=== PATIENT | female | born 1950 | race Caucasian/White ===

== ENCOUNTER 2024-03-27 22:52 | Inpatient (IN) | payer OTHER ==
[2024-03-27] MEDS ORDERED: ACETAMINOPHEN 500 MG TAB ONE (23:22)
[2024-03-27] MEDS ORDERED: NA CHLORIDE 0.9% 2,000 ML ONE (23:22)
[2024-03-28 00:11] LABS: Absolute Basophils 0.1 K/uL (0-0.5); Absolute Lymphocytes (CBC) 0.7 K/uL (0.7-4.9); Absolute Monocytes 2.1 K/uL (0.1-1.3); Absolute Neutrophil 23.7 K/uL (1.8-8.0); Basophils % 0.2 % (0-1.3); Eosinophils % 0.1 % (0-4.4); Hematocrit 37.2 % (36.0-45.0); Hemoglobin 12.4 g/dL (12.0-15.0); Lymphocytes % 2.5 % (15.3-44.8); MCH 28.2 pg (27.0-35.0); MCHC 33.3 g/dL (32.0-36.0); MCV 84.5 fL (80-100); MPV 7.9 fL (7.6-11.3); Monocytes % 7.8 % (3.3-12.3); Neutrophils % 89.4 % (41.7-73.7); Platelets 370 thou/uL (152-406); Red Cell Distribution Width 16.9 % (12.1-15.2)
[2024-03-28 00:14] LABS: PT Prothrombin Time 15.3 SECONDS (9.4-12.5); PTT, Activated Partial Thromb 27.5 SECONDS (24.3-36.9); Protime INR 1.38
[2024-03-28 00:18] LABS: SARS-CoV-2 Antigen CONTROL BLUE LINE VIS/BG OK; SARS-CoV-2 Antigen Rapid Res Negative (Negative)
[2024-03-28 00:24] LABS: Albumin 2.5 g/dL (3.4-5.0); Albumin/Globulin Ratio 0.8 (1.1-1.8); Anion Gap 12.9 mEq/L (5.0-15.0); Bilirubin Total 0.7 mg/dL (0.2-1.0); Globulin 3.3 g/dL (2.3-3.5); Potassium 2.9 mEq/L (3.5-5.1); Protein, Total 5.8 g/dL (6.4-8.2)
[2024-03-28] MEDS ORDERED: CEFTRIAXONE 1000 MG/VIAL ONE (00:44)
[2024-03-28 00:45] LABS: Band Neutrophils 30 % (0-1); Differential Total Cells Count 100; Lymphocytes 3 % (15-42); Monocytes 5 % (0-10); Reactive Lymphocytes 4 %; Segmented Neutrophils 58 % (40-80)
[2024-03-28] MEDS ORDERED: POTASSIUM CL SA 10 MEQ TAB PO ONE (00:45)
[2024-03-28 00:46] LABS: Blood Morphology Comment NOT SEEN (NOT SEEN); Platelet Estimate ADEQ
[2024-03-28 01:07] LABS: Specific Gravity 1.026 (1.005-1.030); Sqamous Epithelial None Seen /HPF (None Seen); Urine Bacteria >50 /HPF (<20); Urine Bilirubin NEGATIVE (Negative); Urine Blood Negative (Negative); Urine Clarity Extremely Turbid (Clear); Urine Color Yellow (Yellow); Urine Culture Reflex Order NOT NEEDED; Urine Glucose NEGATIVE (Negative); Urine Ketones NEGATIVE (Negative); Urine Microscopic Reflex YN ORDER UMIC; Urine Mucus 3+ /HPF (None Seen); Urine Nitrite 2+ (Negative); Urine Protein 1+ (Negative); Urine RBC <5 /HPF (None Seen); Urine Urobilinogen Normal (Normal)
--- NOTE | 2024-03-28 01:41 | P.HP ---
Certification for Inpatient Patient admitted to: Inpatient Practitioner: I am a practitioner with admitting privileges, knowledge of patient current condition, hospital course, and medical plan of care. Services: Services provided to patient in accordance with Admission requirements found in Title 42 Section 412.3 of the Code of Federal Regulations Patient History Date of Service: 03/28/24 Reason for admission: Colitis History of Present Illness: 73 yrs old Female presents to ER via EMS with complaints of Fever. Presents with diarrhea, dehydration. She reports started 4 days ago. ER evaluation fe pj of 102, sinus tachycardia, [id number] at bedside reports patient was found on floor unable to get out of floor for an 1 hour. She reports recently treated for C. difficile, finished 2 weeks of antibiotics. She reports a recent stay in rehab after a fall with back fracture difficulty with ambulation.. Family reports she ambulates with a walker at baseline, today when she fell she denied hitting her head, no reported extremity pain times all 4 extremity, no reported hip pain, back pain. No reported chest pain, shortness of breath, nausea vomiting. Plan to admit for SIRS, colitis, dehydration, hypokalemia, fall. IV antibiotics, - Past Medical/Surgical History -: Congestive heart failure -: Anxiety -: Hypertension -: Fall, back fracture -: C. difficile Psychosocial/ Personal History: Ambulates with a walker, lives in an apartment on her family's property, family checks on her daily - Social History Smoking Status: Never smoker Alcohol use: No Caffeine use: Yes Place of Residence: Home Review of Systems As per [facility] Physical Examination - Physical Exam General: Alert, In no apparent distress, Oriented x3 HEENT: Atraumatic, Normocephalic Neck: Supple, 2+ carotid pulse no bruit Respiratory: Clear to auscultation bilaterally, Normal air movement Cardiovascular: No edema, Normal pulses, Regular rate/rhythm, Other (Tachycardia) Capillary refill: <2 Seconds Gastrointestinal: Normal bowel sounds, Tenderness (Left upper quadrant, left lower quadrant tenderness) Musculoskeletal: No clubbing, No swelling - Studies Laboratory Data (last 24 hrs) 03/27/24 03/27/24 03/27/24 23:20 23:20 23:20 WBC 26.50 H Hgb 12.4 Hct 37.2 Plt Count 370 PT 15.3 H INR 1.38 APTT 27.5 Sodium 136 Potassium 2.9 L BUN 18 Creatinine 0.67 Glucose 143 H Total Bilirubin 0.7 AST 16 ALT 19 Alkaline Phosphatase 113 Microbiology Data (last 24 hrs): 03/27/24 23:20 Nasopharnyx Influenza Type A Antigen Screen - Final 03/27/24 23:20 Nasopharnyx Influenza Type B Antigen Screen - Final Assessment and Plan - Problems (Diagnosis) (1) Pancolitis Current Visit: Yes Status: Acute (2) SIRS (systemic inflammatory response syndrome) Current Visit: Yes Status: Acute (3) Dehydration Current Visit: Yes Status: Acute (4) Diarrhea Current Visit: Yes Status: Acute (5) Hypokalemia Current Visit: Yes Status: Acute (6) Fall Current Visit: Yes Status: Acute - Plan Admit to [facility] GI consult IV fluids, IV antibiotics, as needed antiemetics, and as needed analgesia Stool cultures, blood cultures, urine culture PT eval for fall Trend electrolytes replace as needed Discharge Plan: Home - Advance Directives Does patient have a Living Will: Yes Does patient have a Durable POA for Healthcare: Yes - Code Status/Comfort Care Code Status: Full Code Critical Care: No Time Spent Managing Pts Care (In Minutes): 55
[2024-03-28] MEDS ORDERED: METRONIDAZOLE 500mg IVPB 500 MG/100 ML BAG IV ONE (02:07)
--- NOTE | 2024-03-28 02:10 | EDPHYS ---
Physician Documentation [facility] Name: Gisele Todd Age: 73 yrs Sex: Female : 1950 Arrival Date: 03/27/2024 Time: 22:52 Bed 13 Private MD: ED Physician David Almanzar HPI: 03/27 23:44 This 73 yrs old Female presents to ER via EMS with complaints of Fever. kb 23:44 Pt is a 73 year old female who presents for weakness and 2 falls today. Denies any kb injury. EMS reports fever of 102 with tachycardia. Family reports pt has had diarrhea since . Family states pt had surgery for a broken arm approx 6 weeks ago. Went to rehab where she developed c.diff 5 weeks ago, was on antibiotics and quarantine for 3 weeks and has been home for 2 weeks. . Historical: - Allergies: 23:07 No Known Allergies; rg5 - PMHx: 23:07 Anxiety; Congestive heart failure; Hypertensive disorder; rg5 - Immunization history:: Adult Immunizations up to date. - Infectious Disease History:: CDIFF, . - Social history:: Smoking status: unknown. ROS: 23:44 Constitutional: As per HPI kb Exam: 23:27 Constitutional: This is a well developed, well nourished patient who is awake, alert, kb and in no acute distress. Head/Face: Normocephalic, atraumatic. ENT: Moist Mucous membranes Cardiovascular: Tachycardic rate Respiratory: Respirations even and unlabored. No increased work of breathing. Talking in full sentences Skin: Warm, dry with normal turgor. Normal color. MS/ Extremity: Pulses equal, no cyanosis. Neurovascular intact. Full, normal range of motion. Neuro: Awake and alert, GCS 15, oriented to person, place, time, and situation. Moves all extremities. Normal gait. 23:27 ECG was reviewed by the Attending Physician. 23:27 Abdomen/GI: Inspection: abdomen appears normal, Bowel sounds: normal, Palpation: soft, in all quadrants, mild abdominal tenderness, in the right upper quadrant and right lower quadrant, Vital Signs: 23:04 BP 120 / 66; Pulse 115; Resp 19; Temp 102.3(O); Pulse Ox 89% on R/A; Weight 83.46 kg; rg5 Height 5 ft. 7 in. ; Pain 0/10; 23:13 BP 120 / 66; Pulse 115; Resp 19; Temp 102.3; Pulse Ox 95% on 3 lpm NC; Pain 0/10; rg5 23:55 BP 114 / 66; Pulse 98; Resp 18; Temp 98.9(O); Pulse Ox 95% on 3 lpm NC; Pain 0/10; 5 03/28 01:12 BP 116 / 72; Pulse 96; Resp 17; Pulse Ox 96% on 3 lpm NC; Pain 0/10; rg5 02:31 BP 107 / 66; Pulse 97; Resp 17; Pulse Ox 96% on 2 lpm NC; Pain 0/10; rg5 03/27 23:04 Body Mass Index 28.82 (83.46 kg, 170.18 cm) [facility] 03/27 23:04 Pain Scale: Adult rg5 23:13 Pain Scale: Adult rg5 23:55 Pain Scale: Adult 5 03/28 01:12 Pain Scale: Adult rg5 02:31 Pain Scale: Adult rg5 Юлия Coma Score: 03/27 23:55 Eye Response: spontaneous(4). Motor Response: obeys commands(6). Verbal Response: rg5 oriented(5). Total: 15. MDM: 22:59 Patient medically screened. kb 23:44 Data reviewed: vital signs, nurses notes. Historians other than the Patient: EMS: [facility]. 03/28 00:41 Transition of care: After a detail discussion of the patient's case, care is kb transferred to David Almanzar MD. 02:10 Differential diagnosis: Colitis, UTI. rt 03/27 23:06 Order name: Blood Culture Adult (2) kb 03/27 23:06 Order name: CBC with Diff; Complete Time: 00:46 kb 03/27 23:06 Order name: CMP; Complete Time: 00:24 kb 03/27 23:06 Order name: Lactate w/ 2H reflex if indic.; Complete Time: 00:21 kb 03/27 23:06 Order name: Protime (+inr); Complete Time: 00:14 kb 03/27 23:06 Order name: Ptt, Activated; Complete Time: 00:14 kb 03/27 23:06 Order name: Urinalysis w/ reflexes; Complete Time: 01:40 kb 03/27 23:06 Order name: SARS-COV-2 Antigen Rapid; Complete Time: 00:19 kb 03/27 23:06 Order name: Flu; Complete Time: 00:27 kb 03/27 23:13 Order name: Stool Culture 03/27 23:13 Order name: C.difficile 03/28 00:18 Order name: Manual Differential; Complete Time: 00:46 EDMS 03/27 23:06 Order name: Chest Single View XRAY 03/27 23:06 Order name: CT Abd/Pelvis - IV Contrast Only 03/27 23:06 Order name: EKG; Complete Time: 23:06 kb 03/27 23:06 Order name: Accucheck; Complete Time: 23:19 kb 03/27 23:06 Order name: Cardiac monitoring; Complete Time: 23:19 kb 03/27 23:06 Order name: EKG - Nurse/Tech; Complete Time: 23:19 kb 03/27 23:06 Order name: IV Saline Lock - Large Bore; Complete Time: 23:19 kb 03/27 23:06 Order name: Labs collected and sent; Complete Time: 23:31 kb 03/27 23:06 Order name: O2 Per Protocol; Complete Time: 23:31 kb 03/27 23:06 Order name: O2 Sat Monitoring; Complete Time: 23:31 kb 03/27 23:06 Order name: Vital Signs; Complete Time: 23:32 kb 03/28 00:22 Order name: Straight Cath; Complete Time: 00:46 kb EC/15 23:27 Rate is 113 beats/min. Rhythm is regular. QRS [place] is Normal. IN interval is normal at kb 164 msec. QRS interval is normal at 94 msec. QT interval is normal at 485 msec. Administered Medications: 23:31 Drug: Acetaminophen PO 500 mg PO once Route: PO; rg5 03/28 00:23 Follow up: Response: No adverse reaction rg5 03/27 23:32 Drug: NS 0.9% IV (30 ml/kg) 30 ml/kg IV at bolus once; Sepsis Protocol Route: IV; Rate: rg5 bolus; Site: left antecubital; 03/28 02:52 Follow up: IV Status: Completed infusion rg5 00:46 Drug: Rocephin IV 1 grams IV at calculated rate once; Given slow IV push per pharmacy rg5 instructions Route: IV; Rate: calculated rate; Site: left antecubital; 02:51 Follow up: Response: No adverse reaction rg5 02:52 Follow up: IV Status: Completed infusion; IV Intake: 50ml rg5 00:46 Drug: Potassium Chloride PO 40 mEq PO once Route: PO; rg5 02:04 Follow up: Response: No adverse reaction rg5 02:15 Drug: metroNIDAZOLE IVPB 500 mg 100 ml IVPB at 200 ml/hr once over 30 mins Volume: 100 rg5 ml; Route: IVPB; Rate: 200 ml/hr; Infused Over: 30 mins; Site: left antecubital; 02:51 Follow up: IV Status: Completed infusion; IV Intake: 100ml rg5 Disposition: 02:10 Co-signature as Attending Physician, David Almanzar MD I reviewed the patient's care rt provided by the Advanced Practice Provider and agree with the diagnosis and treatment plan. Disposition Summary: 03/28/24 02:10 Hospitalization Ordered Notes: Hospitalization Status: Inpatient Admission rt Provider: Sukhdev Sanchez rt [facility] rt Condition: Fair rt Problem: new rt Symptoms: have improved rt Bed/Room Type: Standard rt Room Assignment: 224(03/28/24 02:16) Diagnosis - Pancolitis rt - Sepsis rt Forms: - Medication Reconciliation Form rt - SBAR form rt - Leadership Thank You Letter rt Signatures: Dispatcher [employer] Angie [facility], IVÁN-C MFT-Ckb Karolina Maria RN RN David Springer MD MD rt Deena Melo FNP MFT cm12 Johnnie Sepulveda RN RN rg5 Corrections: (The following items were deleted from the chart) 03/27 23:06 23:06 BLOOD CULTURE*+BA.LAB.BRZ ordered. EDMS EDMS 23:06 23:06 CBC+H.LAB.BRZ ordered. EDMS EDMS 23:06 23:06 COMPREHENSIVE METABOLIC PANEL+C.LAB.BRZ ordered. EDMS EDMS 23:06 23:06 LACTATE+C.LAB.BRZ ordered. EDMS EDMS 23:06 23:06 PROTIME (+INR)+COAG.LAB.BRZ ordered. EDMS EDMS 23:06 23:06 PTT, ACTIVATED+COAG.LAB.BRZ ordered. EDMS EDMS 23:06 23:06 Urinalysis+U.LAB.BRZ ordered. EDMS EDMS 23: 23:06 SARS-COV-2 Antigen Rapid+I.LAB.BRZ ordered. EDMS EDMS 23: 23:06 Influenza Screen (A \T\ B)+BA.LAB.BRZ ordered. EDMS EDMS 23: 23:06 Chest Single View+RAD.RAD.BRZ ordered. EDMS EDMS 23: 23:13 Stool Culture+BA.LAB.BRZ ordered. EDMS EDMS 23: 23:13 C.difficile GDH Ag \T\ Toxin AB+LAB.BRZ ordered. EDMS EDMS 23: 23:27 Constitutional: This is a well developed, well nourished patient who is awake, kb alert, and in no acute distress. Head/Face: Normocephalic, atraumatic. ENT: Moist Mucous membranes Cardiovascular: Regular rate Respiratory: Respirations even and unlabored. No increased work of breathing. Talking in full sentences Skin: Warm, dry with normal turgor. Normal color. MS/ Extremity: Pulses equal, no cyanosis. Neurovascular intact. Full, normal range of motion. Neuro: Awake and alert, GCS 15, oriented to person, place, time, and situation. Moves all extremities. Normal gait. kb 03/28 02:16 02:10 rt cg
--- NOTE | 2024-03-28 02:10 | ER ---
Nurse's Notes [facility] Name: Gisele Todd Age: 73 yrs Sex: Female : 1950 Arrival Date: 03/27/2024 Time: 22:52 Bed 13 Private MD: Diagnosis: Pancolitis;Sepsis Presentation: 03/27 23:04 Chief complaint: EMS states: patient had a multiple falls \T\ complaint of weakness. rg5 Coronavirus screen: Vaccine status: Patient reports receiving the 1st dose of the Covid vaccine. Client denies travel out of the [place] in the last 14 days. Ebola Screen: Patient negative for fever greater than or equal to 101.5 degrees Fahrenheit, and additional compatible Ebola Virus Disease symptoms. Initial Sepsis Screen: Does the patient meet any 2 criteria? No. Patient's initial sepsis screen is negative. Does the patient have a suspected source of infection? No. Patient's initial sepsis screen is negative. Risk Assessment: Do you want to hurt yourself or someone else? Patient reports no desire to harm self or others. Onset of symptoms was March 27, 2024. 23:04 Method Of Arrival: EMS: [facility] rg5 23:04 Acuity: WHITNEY 3 rg5 23:15 Care prior to arrival: Medication(s) given: Tylenol, 650 mg, IV initiated. 20 GA, in rg5 the left antecubital area, Glucose check: 161. Triage Assessment: 23:07 General: Appears in no apparent distress. Behavior is calm, cooperative, appropriate rg5 for age. Pain: Denies pain. EENT: No deficits noted. Neuro: Level of Consciousness is awake, alert, obeys commands, Oriented to person, place, time, situation. Cardiovascular: Denies chest pain, Capillary refill < 3 seconds Patient's skin is warm and dry. Rhythm is sinus tachycardia. Respiratory: Airway is patent Trachea midline Respiratory effort is even, unlabored, Respiratory pattern is regular, symmetrical. GI: Abdomen is round non-distended, Abd is soft and non tender Reports diarrhea. : No signs and/or symptoms were reported regarding the genitourinary system. Derm: Skin is intact, Skin is dry, Skin is normal, Skin temperature is warm. Musculoskeletal: Range of motion: intact in all extremities. Historical: - Allergies: 23:07 No Known Allergies; rg5 - PMHx: 23:07 Anxiety; Congestive heart failure; Hypertensive disorder; rg5 - Immunization history:: Adult Immunizations up to date. - Infectious Disease History:: CDIFF, . - Social history:: Smoking status: unknown. Screenin:16 [facility] ED Fall Risk Assessment (Adult) History of falling in the last 3 months, rg5 including since admission Yes- fall prone (multiple falls) (3 pts) Confusion or Disorientation No (0 pts) Intoxicated or Sedated No (0 pts) Impaired Gait Yes (1 pt) Mobility Assist Device Used Yes (1 pt) Altered Elimination No (0 pt) Score/Fall Risk Level 3 or more points = High Risk Oriented to surroundings, Maintained a safe environment, Hourly rounding (assess needs \T\ fall precautionary measures) done. Abuse screen: Denies threats or abuse. Nutritional screening: No deficits noted. Tuberculosis screening: No symptoms or risk factors identified. Assessment: 23:14 Reassessment: see triage assessment. rg5 23:53 Reassessment: Patient and/or family updated on plan of care and expected duration. Pain rg5 level reassessed. Patient is alert, oriented x 3, equal unlabored respirations, skin warm/dry/pink. Patient states feeling better. 03/28 00:00 Reassessment: Patient and/or family updated on plan of care and expected duration. Pain rg5 level reassessed. Patient is alert, oriented x 3, equal unlabored respirations, skin warm/dry/pink. 01:11 Reassessment: Patient and/or family updated on plan of care and expected duration. Pain rg5 level reassessed. Patient is alert, oriented x 3, equal unlabored respirations, skin warm/dry/pink. 02:31 Reassessment: Patient and/or family updated on plan of care and expected duration. Pain rg5 level reassessed. Patient is alert, oriented x 3, equal unlabored respirations, skin warm/dry/pink. Patient states feeling better. Vital Signs: 03/27 23:04 BP 120 / 66; Pulse 115; Resp 19; Temp 102.3(O); Pulse Ox 89% on R/A; Weight 83.46 kg; rg5 Height 5 ft. 7 in. ; Pain 0/10; 23:13 BP 120 / 66; Pulse 115; Resp 19; Temp 102.3; Pulse Ox 95% on 3 lpm NC; Pain 0/10; rg5 23:55 BP 114 / 66; Pulse 98; Resp 18; Temp 98.9(O); Pulse Ox 95% on 3 lpm NC; Pain 0/10; rg5 03/28 01:12 BP 116 / 72; Pulse 96; Resp 17; Pulse Ox 96% on 3 lpm NC; Pain 0/10; rg5 02:31 BP 107 / 66; Pulse 97; Resp 17; Pulse Ox 96% on 2 lpm NC; Pain 0/10; rg5 03/27 23:04 Body Mass Index 28.82 (83.46 kg, 170.18 cm) rg5 03/27 23:04 Pain Scale: Adult rg5 23:13 Pain Scale: Adult rg5 23:55 Pain Scale: Adult rg5 03/28 01:12 Pain Scale: Adult rg5 02:31 Pain Scale: Adult rg5 Юлия Coma Score: 03/27 23:55 Eye Response: spontaneous(4). Motor Response: obeys commands(6). Verbal Response: rg5 oriented(5). Total: 15. ED Course: 22:59 Patient arrived in ED. tl4 22:59 Angie Dahl FNP-C is [facility]. kb 22:59 David Almanzar MD is Attending Physician. kb 23:03 Johnnie Sepulveda, CHAKA is Primary Nurse. rg5 23:07 Triage completed. rg5 23:07 Arm band placed on right wrist. EKG completed in triage. Results shown to MD. rg5 23:16 Patient has correct armband on for positive identification. Fall risk band placed. rg5 Placed in gown. Call light in reach. Side rails up X2. Adult w/ patient. 23:16 No provider procedures requiring assistance completed. Maintain EMS IV. Dressing rg5 intact. Good blood return noted. Site clean \T\ dry. Gauge \T\ site: 20 gauge left AC. Flushed with 10 mL NS. Oxygen administration via nasal cannula \T\ 3L/min. 23:20 EKG done, by ED staff, reviewed by Angie OJEDA. oe 23:39 Chest Single View XRAY In Process Unspecified. EDMS 03/28 01:07 CT Abd/Pelvis - IV Contrast Only In Process Unspecified. EDMS 02:09 Sanchez, Sukhdev, MD is Hospitalizing Provider. rt 02:58 Provided Education on: need for admit. rg5 02:58 Patient admitted, IV remains in place. intact, No redness/swelling at site. rg5 Administered Medications: 03/27 23:31 Drug: Acetaminophen PO 500 mg PO once Route: PO; rg5 03/28 00:23 Follow up: Response: No adverse reaction rg5 03/27 23:32 Drug: NS 0.9% IV (30 ml/kg) 30 ml/kg IV at bolus once; Sepsis Protocol Route: IV; Rate: rg5 bolus; Site: left antecubital; 03/28 02:52 Follow up: IV Status: Completed infusion rg5 00:46 Drug: Rocephin IV 1 grams IV at calculated rate once; Given slow IV push per pharmacy rg5 instructions Route: IV; Rate: calculated rate; Site: left antecubital; 02:51 Follow up: Response: No adverse reaction rg5 02:52 Follow up: IV Status: Completed infusion; IV Intake: 50ml rg5 00:46 Drug: Potassium Chloride PO 40 mEq PO once Route: PO; rg5 02:04 Follow up: Response: No adverse reaction rg5 02:15 Drug: metroNIDAZOLE IVPB 500 mg 100 ml IVPB at 200 ml/hr once over 30 mins Volume: 100 rg5 ml; Route: IVPB; Rate: 200 ml/hr; Infused Over: 30 mins; Site: left antecubital; 02:51 Follow up: IV Status: Completed infusion; IV Intake: 100ml rg5 Medication: 03/27 23:16 VIS not applicable for this client. rg5 Intake: 03/28 02:51 IV: 100ml; Total: 100ml. rg5 02:52 IV: 50ml; Total: 150ml. rg5 Outcome: 02:10 Decision to Hospitalize by Provider. rt 03:20 Admitted to Med/surg accompanied by tech, via stretcher, rg5 03:20 Condition: stable 03:20 Instructed on the need for admit, Demonstrated understanding of instructions, 03:21 Patient left the ED. rg5 Signatures: Dispatcher [employer] EDNJ Angie Dahl, CULTURAL HISTORIAN-C CULTURAL HISTORIAN-Ckb Alfonzo Vasquez Ryan, MD MD rt Flavio Hernández RN RN tl4 Johnnie Sepulveda, RN RN rg5
[2024-03-28 03:43] VITALS: BMI 27.1
[2024-03-28] MEDS ORDERED: ONDANSETRON 4 MG/2 ML VIAL IV PRN (03:48)
[2024-03-28] MEDS: CIPROFLOXACIN 400mg IV 400 MG/200 ML BAG IV SCH (04:07)
[2024-03-28] MEDS: NA CHLORIDE 0.9% 1,000 ML IV SCH (04:07)
[2024-03-28 04:51] LABS: Absolute Basophils 0.1 K/uL (0-0.5); Absolute Lymphocytes (CBC) 1.1 K/uL (0.7-4.9); Absolute Monocytes 1.7 K/uL (0.1-1.3); Absolute Neutrophil 21.8 K/uL (1.8-8.0); Basophils % 0.3 % (0-1.3); Eosinophils % 0.1 % (0-4.4); Hematocrit 35.6 % (36.0-45.0); Hemoglobin 11.4 g/dL (12.0-15.0); Lymphocytes % 4.3 % (15.3-44.8); MCH 27.5 pg (27.0-35.0); MCHC 32.1 g/dL (32.0-36.0); MCV 85.7 fL (80-100); MPV 8.1 fL (7.6-11.3); Neutrophils % 88.3 % (41.7-73.7); Platelets 305 thou/uL (152-406); RBC Red Blood Cell Count 4.15 M/uL (3.86-4.86); Red Cell Distribution Width 16.7 % (12.1-15.2)
[2024-03-28 05:05] LABS: Anion Gap 12.3 mEq/L (5.0-15.0); Magnesium 1.8 mg/dL (1.6-2.4); Potassium 3.3 mEq/L (3.5-5.1)
[2024-03-28] MEDS: METRONIDAZOLE 500mg IVPB 500 MG/100 ML BAG IV SCH (05:18)
[2024-03-28] MEDS: ACETAMINOPHEN 500 MG TAB PO PRN (11:39)
--- NOTE | 2024-03-28 12:48 | EKG ---
Test Date: 2024-03-27 Test Time: 23:16:31 Workday Director: JOEL MEASUREMENT RESULTS: Intervals: Rate: 113 PA: 164 QRSD: 94 QT: 354 QTc: 485 [place]: P: 50 PA: 164 QRS: 19 T: 76 INTERPRETIVE STATEMENTS: Sinus tachycardia with premature supraventricular complexes Otherwise normal ECG No previous ECG available for comparison Electronically Signed On 03-28-24 12:46:43 CDT by Yemi Simon
--- NOTE | 2024-03-28 13:30 | P.PN ---
Date of Service: 03/28/24 CT shows abnormal mucosal thickening, minimal enhancement and pericolonic haziness throughout the large bowel corresponding to pancolitis/pseudomembranous colitis could be of consideration. Elevation of the left hemidiaphragm with compressive atelectatic changes and portions of the stomach, spleen within the left lower chest cavity. Subjective: Drowsy, reports less diarrhea so far today No other acute events overnight ROS: 10 point ROS as noted above, otherwise negative Physical exam GEN: Drowsy, falls asleep easily but answers questions appropriately, oriented, NAD HEENT: Normal conjunctiva, sclera anicteric CV: Regular rate and rhythm, no edema Pulm: Nonlabored respirations on room air ABD: Soft, nontender, nondistended MSK: No joint tenderness Integumentary: No rashes Neuro: Normal speech, normal affect Vitals reviewed Assessment Sepsis secondary to pancolitis/pseudomembranous colitis Recent C. difficile infection Hypokalemia Hypertension Gout Plan Sepsis secondary to pancolitis/pseudomembranous colitis Recent C. difficile infection -CT data power consultant on 03/[address] shows abnormal mucosal thickening, minimal enhancement and pericolonic haziness throughout the large bowel corresponding to pancolitis/pseudomembranous colitis could be of consideration. Elevation of the left hemidiaphragm with compressive atelectatic changes and portions of the stomach, spleen within the left lower chest cavity. -Significant leukocytosis noted -Patient reports in February she had surgery on her back to do T11/L1 fracture After surgery she was admitted to [facility] nursing facility for rehab While in [facility] she developed C. difficile and completed 2 weeks of oral antibiotics-likely vancomycin She finished the 2-week course of antibiotics about 3 weeks ago Reports she has been feeling well until the last 3 to 4 days when she developed diarrhea and began to feel very weak/tired -C. 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
[2024-03-28] MEDS: KCL 20 MEQ/100 mL IVPB 20 MEQ/100 ML BAG IV SCH (14:01)
[2024-03-28] MEDS: VANCOMYCIN HCL 125 MG CAPSULE PO SCH (14:13)
--- NOTE | 2024-03-28 14:50 | RAD REPORT ---
CLINICAL HISTORY: Fever. COMPARISON: None. TECHNIQUE: XR CHEST 1 VIEW 03/27/2024 11:06 PM CDT FINDINGS: Cardiac silhouette is normal in size. Lungs are clear without consolidation, atelectasis, mass or [place] ma. There is no pleural effusion. There is no pneumothorax. There are no acute osseous findings. Left diaphragm is elevated. IMPRESSION: Clear lungs. Electronically signed by: Shahriar López MD 03/28/2024 12:03 AM CDT RP Transcribed Date/Time: 03/28/2024 2:49 PM
--- NOTE | 2024-03-28 15:00 | RAD REPORT ---
EXAM DESCRIPTION: CTABDOMEN PELVIS WITH IV CONTRAST 03/28/2024 1:23 AM CDT CLINICAL HISTORY: 73 years, Female, Abdomen pain. COMPARISON: None. PROCEDURE: Contrast-enhanced images of the abdomen and pelvis were performed from the lung bases to the ischial tuberosities after the administration of IV contrast. In addition multiplanar reformats in the coronal and sagittal plane were obtained and reviewed. An individualized dose optimization technique, Automated Exposure Control, was utilized for the perfo rmed procedure. FINDINGS: Lung bases: The lung bases demonstrate elevation of the left hemidiaphragm with compressive atelectat ic changes and portions of the stomach spleen within the left lower chest cavity. Liver: The liver demonstrated presence of decreased attenuation corresponding to a study done fatty i nfiltration. Gallbladder: Surgical clips within the gallbladder fossa corresponding to previous cholecystectomy. N o significant biliary duct dilatation. Adrenal glands: The adrenal glands demonstrate to be normal. Pancreas: The pancreas demonstrate to be normal. Spleen: The spleen demonstrate to be within normal limits. Kidneys: The kidneys demonstrate normal uptake of contrast media. There is no evidence for nephrolith iasis and/or hydronephrosis. GI: Grossly the unopacified stomach and small bowel demonstrate to be within normal limits. No eviden ce for bowel dilatation and/or free air. There is abnormal mucosal thickening, minimal enhancement and pericolonic haziness throughout the lar ge bowel corresponding to pancolitis/pseudomembranous colitis could be of consideration. : The urinary bladder demonstrate to be unremarkable. Genitalia: The uterus is absent. There are no adnexal masses. Abdominal aorta: The aorta demonstrate to be within normal limits. Retroperitoneum:There is no retroperitoneal lymphadenopathy. There is no evidence for ascites and/or abnormal fluid collections. Bones: The lumbar spine demonstrated presence of posterior testicular fusion at T11/T12 and L2/L3 4 t reatment of compressed fracture with retropulsed fragment at L1. Soft tissues: The soft tissues demonstrate small injection granuloma right gluteal area. IMPRESSION: Abnormal mucosal thickening, minimal enhancement and pericolonic haziness throughout the large bowel corresponding to pancolitis/pseudomembranous colitis could be of consideration. Status post cholecystectomy and hysterectomy. Fatty infiltration of the liver. Elevation of the left hemidiaphragm with compressive atelectatic changes and portions of the stomach spleen within the left lower chest cavity. The Electronically signed by: Devon Perales MD 03/28/2024 01:39 AM CDT RP Transcribed Date/Time: 03/28/2024 3:00 PM
[2024-03-28] MEDS: NA CHLORIDE 0.9% 1,000 ML IV ONE (15:37)
[2024-03-28 17:26] LABS: CDIFF INTERNAL NEG CONTROL White Background (WHITE BKGD); STOOL CONSISTENCY Liquid/Semi-Solid
[2024-03-28 17:27] LABS: C.diff Antigen/Toxin Ag pos : Tox pos (NEG : NEG)
[2024-03-28] MEDS: FIDAXOMICIN 200 MG TABLET PO SCH (20:16)
[2024-03-29] MEDS: KCL 20 MEQ/100 mL IVPB 20 MEQ/100 ML BAG IV SCH (00:16)
[2024-03-29 04:57] LABS: Absolute Basophils 0.1 K/uL (0-0.5); Absolute Eosinophils 0.4 K/uL (0-0.5); Absolute Lymphocytes (CBC) 1.3 K/uL (0.7-4.9); Absolute Monocytes 1.4 K/uL (0.1-1.3); Basophils % 0.3 % (0-1.3); Eosinophils % 1.4 % (0-4.4); Hematocrit 34.6 % (36.0-45.0); Hemoglobin 11.4 g/dL (12.0-15.0); Lymphocytes % 4.9 % (15.3-44.8); MCH 28.2 pg (27.0-35.0); MCV 85.5 fL (80-100); MPV 7.7 fL (7.6-11.3); Monocytes % 5.2 % (3.3-12.3); Neutrophils % 88.2 % (41.7-73.7); Platelets 360 thou/uL (152-406); RBC Red Blood Cell Count 4.04 M/uL (3.86-4.86); Red Cell Distribution Width 16.9 % (12.1-15.2)
[2024-03-29 05:13] LABS: Anion Gap 8.1 mEq/L (5.0-15.0); Magnesium 1.8 mg/dL (1.6-2.4); Potassium 4.1 mEq/L (3.5-5.1)
[2024-03-29] MEDS: MAGNESIUM SULFATE 1 gm IVPB 1 GM/100 ML BAG IV ONE (05:31)
--- NOTE | 2024-03-29 07:35 | P.PN ---
Date of Service: 03/29/24 Subjective: Two Diarrhea episodes in 24 hours Increased WBC, continue fidaxamicin ROS: 10 point ROS as noted above, otherwise negative Physical exam GEN: Awake and oriented, NAD HEENT: Normal conjunctiva, sclera anicteric CV: RRR, S1 S2 present, no edema Pulm: Nonlabored respirations on room air ABD: Soft on palpation, ND/NT MSK: No joint tenderness Integumentary: No rashes Neuro: Normal speech, normal affect Vitals reviewed Assessment Sepsis secondary to pancolitis/pseudomembranous colitis Recent C. difficile infection Hypokalemia Hypertension Gout Plan Sepsis secondary to pancolitis/pseudomembranous colitis Recent C. 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 Elevation of the left hemidiaphragm with compressive atelectatic changes and portions of the stomach, spleen within the left lower chest cavity. -Significant leukocytosis noted -Patient reports in February she had surgery on her back to do T11/L1 fracture After surgery she was admitted to [facility] for rehab While in [facility] she developed C. difficile and completed 2 weeks of oral antibiotics-likely vancomycin She finished the 2-week course of antibiotics about 3 weeks ago Reports she has been feeling well until the last 3 to 4 days when she developed diarrhea and began to feel very weak/tired -C. 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 Plan of care discussed with Ms. Ley. Patient reports improvement in her diarrhea. She reports persistent abdominal pain. Stool for C. difficile is positive. Continue Dificid. Infectious disease consult. Monitor and replete electrolytes as needed. <cheko henley - Last Filed: 03/30/24 18:35>
--- NOTE | 2024-03-29 15:20 | CON ---
History Of Present Illness: This is a 73-year-old female brought into the emergency room with fevers and diarrhea. She was seen in the emergency room 4 days ago for a fever of 102, tachycardia. She w as recently treated for C diff, finished 2 weeks of antibiotic. As per patient, she developed some c onfusion. Also does not recall much at this point. Past Medical History: Congestive heart failure, anxiety, hypertension, fall and back fracture, C dif f colitis. Social History: Nonsmoker. Nondrinker. Family History: Noncontributory. Medications: Dificid. See MARs for other medications. Allergies: NO KNOWN DRUG ALLERGIES. Review of Systems: A 10-point review was performed. Physical Examination: General: This is a 73-year-old female, lying in bed, not in any acute cardiopulmonary distress. Sin ce yesterday, patient had 5 bowel movements, all liquid. Vital Signs: Temperature 97, pulse 93, respirations 16, blood pressure 106/62. HEENT: Unremarkable. Neck: Supple. Lungs: Clear to auscultation. Basal crackles. Heart: S1, S2. Regular. Abdomen: Sounds hyperactive, nontender. Extremities: No edema. Laboratory Data: Shows WBC 27,000, hemoglobin 11.4, platelets 360. Chemistry shows BUN of 10, creat inine 0.4, albumin level of 2.5. Urinalysis shows wbc 5 to 10. Micro data: Negative for influenza A and B antigen. Blood cultures are negative for 24 hours. C diff toxin, antigen positive, toxin po sitive. COVID test negative. Abdominal CT and pelvis CT shows abnormal mucosal thickening, minimall y enhanced and pericolonic haziness throughout the large bowel corresponding to pancolitis, pseudomem branous colitis. Assessment And Plan: Clostridium difficile colitis with pancolitis. Continue Dificid and hydration. Dietary consult for monitoring the dietary habits and nutritional support. Leukocytosis secondary to Clostridium difficile colitis. Consider transferring patient for possible fecal transplant and pr olonged treatment with the Dificid. Consider adding Questran and probiotics. So through our treatme nt plan, we will follow the patient closely. Thank you, Dr. Shah, for consult. NF/MODL Voice ID: [id number] Report ID: [id number]
[2024-03-30 06:15] LABS: Absolute Basophils 0.1 K/uL (0-0.5); Absolute Eosinophils 0.6 K/uL (0-0.5); Absolute Lymphocytes (CBC) 1.1 K/uL (0.7-4.9); Absolute Monocytes 0.9 K/uL (0.1-1.3); Absolute Neutrophil 15.3 K/uL (1.8-8.0); Basophils % 0.4 % (0-1.3); Eosinophils % 3.2 % (0-4.4); Hematocrit 37.4 % (36.0-45.0); Lymphocytes % 6.2 % (15.3-44.8); MCH 27.7 pg (27.0-35.0); MCV 86.5 fL (80-100); MPV 7.7 fL (7.6-11.3); Monocytes % 4.8 % (3.3-12.3); Neutrophils % 85.4 % (41.7-73.7); Platelets 380 thou/uL (152-406); RBC Red Blood Cell Count 4.33 M/uL (3.86-4.86); Red Cell Distribution Width 17.1 % (12.1-15.2)
[2024-03-30 06:16] LABS: Anion Gap 8.6 mEq/L (5.0-15.0); Magnesium 1.9 mg/dL (1.6-2.4); Potassium 3.6 mEq/L (3.5-5.1)
[2024-03-30] MEDS: POTASSIUM CL SA 10 MEQ TAB PO ONE (08:35)
[2024-03-30 10:16] LABS: Band Neutrophils 1 % (0-1); Blood Morphology Comment NOT SEEN (NOT SEEN); Differential Total Cells Count 100; Lymphocytes 5 % (15-42); Monocytes 4 % (0-10); Myelocytes 1 % (0-0); Platelet Estimate ADEQ; Segmented Neutrophils 88 % (40-80)
--- NOTE | 2024-03-30 12:54 | PN ---
Subjective: Patient lying in bed. No new acute event. Chart reviewed. Diarrhea is improving. Con tinue supportive care. Objective: Vital Signs: Reviewed. Lungs: Basal crackles. Heart: S1, S2. Regular. Abdomen: Soft, nontender. Bowel sounds present. Extremity: No edema. Laboratory Data: WBC is down to 17,000, hemoglobin 12, platelets are 380. Chemistry shows BUN of 8, creatinine 0.3. Assessment And Plan: Clostridium difficile colitis. Continue Dificid for at least 20 days. Continu e supportive care and hydration. We will follow the patient as needed. NF/MODL Voice ID: [id number] Report ID: [id number]
[2024-03-30] MEDS ORDERED: ALBUTEROL INHALER 200 PUFF/6.7 GM IH PRN (16:09)
--- NOTE | 2024-03-30 18:41 | P.PN ---
Date of Service: 03/30/24 Subjective: Awake and feeling weak, walked for home oxygen determination and was found to be weak PT consulted Will recommend SNF ROS: 10 point ROS as noted above, otherwise negative Physical exam GEN: Awake and oriented x3, NAD, conversing well HEENT: Normal conjunctiva, sclera anicteric CV: Regular rate and rhythm, S1 S2 present, no edema Pulm: Symmetrical chest wall movement, nonlabored respirations on room air ABD: Soft and benign on palpation, nontender, nondistended MSK: No joint tenderness Integumentary: No rashes Neuro: Normal speech, normal affect Vitals reviewed Assessment Sepsis secondary to pancolitis/pseudomembranous colitis Leukocytosis Recent C. difficile infection Weakness Hypokalemia Hypertension Gout Plan Sepsis secondary to pancolitis/pseudomembranous colitis Leukocytosis Recent C. 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 Elevation of the left hemidiaphragm with compressive atelectatic changes and portions of the stomach, spleen within the left lower chest cavity. -Significant leukocytosis trending down at 17.9 (03/30) -Patient reports in February she had surgery on her back to do T11/L1 fracture After surgery she was admitted to [facility] While in [facility] she developed C. difficile and completed 2 weeks of oral antibiotics-likely vancomycin She finished the 2-week course of antibiotics about 3 weeks ago Reports she has been feeling well until the last 3 to 4 days when she developed diarrhea and began to feel very weak/tired -C. difficile testing positive (03/28), recurrent C. difficile -Stopped Cipro/Flagyl -infectious disease consulted -started Fidaxomicin 03/28 -PT evaluated, likely need SNF Hypokalemia-resolved Continue IV fluids, electrolyte protocol in place Hypertension Gout Continue home medications when verified/as appropriate VTE: Lovenox Code: Full Dispo: 2+ days
[2024-03-30] MEDS: allopurinoL 300 MG TAB PO SCH (20:08)
[2024-03-30] MEDS: SERTRALINE HCL 100 MG TAB PO SCH (20:08)
[2024-03-31 07:35] LABS: Absolute Basophils 0.1 K/uL (0-0.5); Absolute Eosinophils 0.4 K/uL (0-0.5); Absolute Lymphocytes (CBC) 1.3 K/uL (0.7-4.9); Absolute Monocytes 0.9 K/uL (0.1-1.3); Absolute Neutrophil 13.5 K/uL (1.8-8.0); Basophils % 0.4 % (0-1.3); Eosinophils % 2.4 % (0-4.4); Hematocrit 37.3 % (36.0-45.0); Hemoglobin 12.4 g/dL (12.0-15.0); Lymphocytes % 7.9 % (15.3-44.8); MCH 28.2 pg (27.0-35.0); MCHC 33.3 g/dL (32.0-36.0); MCV 84.8 fL (80-100); Monocytes % 5.6 % (3.3-12.3); Neutrophils % 83.7 % (41.7-73.7); Platelets 473 thou/uL (152-406); Red Cell Distribution Width 17.1 % (12.1-15.2)
[2024-03-31] MEDS: MULTIVITAMIN TAB PO SCH (07:46)
[2024-03-31] MEDS: ASPIRIN 81 MG CHEWABLE TABLET PO SCH (07:46)
[2024-03-31 07:53] LABS: Anion Gap 7.8 mEq/L (5.0-15.0); Magnesium 1.8 mg/dL (1.6-2.4); Phosphorus 3.1 mg/dL (2.5-4.9); Potassium 3.8 mEq/L (3.5-5.1)
--- NOTE | 2024-03-31 15:43 | P.PN ---
Date of Service: 03/31/24 Subjective: Feeling strong this morning Sitting in the bedside chair Working with therapy ROS: 10 point ROS as noted above, otherwise negative Physical exam GEN: AAO x3, NAD HEENT: Normal conjunctiva, sclera anicteric CV: RRR, S1 S2 present, no edema Pulm: Symmetrical chest wall movement, nonlabored respirations on room air ABD: Soft on palpation, NT/ND MSK: No joint tenderness Integumentary: No rashes Neuro: Normal speech, normal affect Vitals reviewed Assessment Sepsis secondary to pancolitis/pseudomembranous colitis Leukocytosis Recent C. difficile infection Weakness Hypokalemia Hypertension Gout Plan Sepsis secondary to pancolitis/pseudomembranous colitis Leukocytosis Recent C. 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 Elevation of the left hemidiaphragm with compressive atelectatic changes and portions of the stomach, spleen within the left lower chest cavity. -Significant leukocytosis trending down at 16.10 (03/31) -Patient reports in February she had surgery on her back to do T11/L1 fracture After surgery she was admitted to [facility] nursing home facility for rehab While in [facility] she developed C. difficile and completed 2 weeks of oral antibiotics-likely vancomycin She finished the 2-week course of antibiotics about 3 weeks ago Reports she has been feeling well until the last 3 to 4 days when she developed diarrhea and began to feel very weak/tired -C. difficile testing positive (03/28), recurrent C. difficile -Stopped Cipro/Flagyl -infectious disease consulted -started Fidaxomicin 03/28 -PT evaluated, fatigueable, recommendation for continued PT Hypokalemia-resolved Continue IV fluids, electrolyte protocol in place Hypertension Gout Continue home medications when verified/as appropriate VTE: Lovenox Code: Full Dispo: Awaiting placement
[2024-04-01 05:08] LABS: Magnesium 1.9 mg/dL (1.6-2.4)
[2024-04-01 11:12] VITALS: O2SAT 95
--- NOTE | 2024-04-01 12:17 | P.DS ---
Admission Date: 03/28/24 Discharge Date: 04/01/24 Disposition: TRANSFER TO SNF - REHAB Discharge Condition: FAIR Reason for Admission: Colitis Brief History of Present Illness: Diagnosis Sepsis secondary to pancolitis/pseudomembranous colitis Leukocytosis Recent C. difficile infection Weakness Hypokalemia Hypertension Gout HPI 03/28/2024 Gisele Todd is a 73 yrs old Female presents to ER via EMS with complaints of Fever. Presents with diarrhea, dehydration. She reports started 4 days ago. ER evaluation fever of 102, sinus tachycardia, [id number] at bedside reports patient was found on floor unable to get out of floor for an 1 hour. She reports recently treated for C. difficile, finished 2 weeks of antibiotics. She reports a recent stay in rehab after a fall with back fracture difficulty with ambulation. Family reports she ambulates with a walker at baseline, today when she fell she denied hitting her head, no reported extremity pain times all 4 extremity, no reported hip pain, back pain. No reported chest pain, shortness of breath, nausea vomiting. Plan to admit for SIRS, colitis, dehydration, hypokalemia, fall. IV antibiotics, Hospital Course: Gisele Todd is a pleasant 73-year-old female with a past medical history significant for CHF, anxiety, hypertension, back fracture, C. difficile who was admitted to the [facility] on diarrhea and dehydration for 03/28/2024. Gisele presented to the ED with chief complaint of diarrhea and dehydration. She was found to be tachycardic and febrile. She has a history of C. difficile and finished antibiotics 2 weeks prior to arrival. She completed a stay at rehab for a back fracture and difficulty ambulating. During this admission, C. difficile retested and resulted positive. She has previously been treated with vancomycin and will now need an extensive course of fidaxomycin. She has worked with physical therapy and found to have weakness requiring further rehab at this time. On 04/01/2024, Gisele was seen on morning rounds and deemed medically stable for discharge to [facility]. Gisele was discharged with instructions to schedule follow-up appointments with PCP. Gisele was provided prescriptions for fidaxomycin. Physical exam GEN: Alert and oriented x3, NAD HEENT: Normal conjunctiva, sclera anicteric CV: Regular rate and rhythm, S1 S2 present, no edema Pulm: Symmetrical chest wall movement, clear lung sounds bilaterally, on room air ABD: Soft on palpation, NT/ND, active bowel sounds MSK: No joint tenderness Integumentary: No rashes Neuro: Normal speech, normal affect Vital Signs/Physical Exam: Temp Pulse Resp BP Pulse Ox 97.6 F 90 20 128/68 94 04/01/24 08:00 04/01/24 08:00 04/01/24 08:00 04/01/24 08:00 04/01/24 08:00 Laboratory Data at Discharge: WBC 16.10 thou/uL (4.3-10.9) H 03/31/24 07:07 Hgb 12.4 g/dL (12.0-15.0) 03/31/24 07:07 Hct 37.3 % (36.0-45.0) 03/31/24 07:07 Plt Count 473 thou/uL (152-406) H 03/31/24 07:07 PT 15.3 SECONDS (9.4-12.5) H 03/27/24 23:20 INR 1.38 03/27/24 23:20 APTT 27.5 SECONDS (24.3-36.9) 03/27/24 23:20 Sodium 140 mEq/L (136-145) 04/01/24 04:00 Potassium 4.0 mEq/L (3.5-5.1) 04/01/24 04:00 BUN 7 mg/dL (7-18) 04/01/24 04:00 Creatinine 0.43 mg/dL (0.55-1.02) L 04/01/24 04:00 Glucose 117 mg/dL (74-106) H 04/01/24 04:00 Phosphorus 3.1 mg/dL (2.5-4.9) 03/31/24 07:07 Magnesium 1.9 mg/dL (1.6-2.4) 04/01/24 04:00 Total Bilirubin 0.7 mg/dL (0.2-1.0) 03/27/24 23:20 AST 16 U/L (15-37) 03/27/24 23:20 ALT 19 U/L (13-56) 03/27/24 23:20 Alkaline Phosphatase 113 U/L (45-117) 03/27/24 23:20 Home Medications: Albuterol Sulfate [Proair Respiclick] 90 mcg IH PRN PRN 03/28/24 Allopurinol 300 mg PO BEDTIME 03/28/24 Amlodipine [Norvasc*] 10 mg PO DAILY 03/28/24 Aspirin 81 mg PO DAILY 03/28/24 Multivitamin [Multivitamins] 1 each PO DAILY 03/28/24 Sertraline [Zoloft*] 100 mg PO BEDTIME 03/28/24 hydroCHLOROthiazide [Hydrochlorothiazide] 12.5 mg PO DAILY 03/28/24 Fidaxomicin [Dificid] 200 mg PO BID #20 tab 03/30/24 Potassium Chloride 10 meq PO DAILY #5 tab 03/30/24 New Medications: Fidaxomicin [Dificid] 200 mg PO BID #20 tab Potassium Chloride 10 meq PO DAILY #5 tab Physician Discharge Instructions: 1. Please call and schedule a follow-up appointment with your PCP in 3-5 days - Please follow-up with your PCP for medication refills/adjustments 2. Continue soft GI diet 3. activity restrictions fall precautions 4. Return to the ED if symptoms worsen New medications Dificid 200 mg p.o. twice daily (End date April 16) Diet: ADA Activity: Ad fernanda Followup: ROSA LEE [Primary Care Provider] - 1-2 Weeks
[2024-04-01 17:33] VITALS: BP 106/55; TEMP 98.1
== END 2024-04-01 18:05 | DRG 872 ==
LOC: ER 22:52 → ERHOLD 03-28 01:42 → 2ND 03-28 03:16
PROVIDERS: ADMIT Hospitalist; ATTEND Internal Medicine
DX: A41.9 Sepsis, unspecified organism (principal); A04.71 Enterocolitis due to Clostridium difficile, recurrent; I10 Essential (primary) hypertension; M10.9 Gout, unspecified; E86.0 Dehydration; E87.6 Hypokalemia; B96.89 Other specified bacterial agents as the cause of diseases classified elsewhere; R00.0 Tachycardia, unspecified; R29.6 Repeated falls; Z91.81 History of falling; Z11.52 Encounter for screening for COVID-19; Z28.311 Partially vaccinated for COVID-19
CPT/HCPCS: 36415; 71045; 74177; 80048; 80053; 81001; 83605; 83735; 84100; 84132; 85025; 85610; 85730; 87040; 87045; 87046; 87324; 87804; 87811; 93005; 96365; 96367; 97116; 97161; 97530; 99285; J0696; J0744; J3475; J3480; J7030; J8499; Q9967